=== PATIENT | male | born 1985 | race Caucasian/White ===

== ENCOUNTER 2019-11-02 12:11 | Emergency (ER) | payer BC ==
[~2019-11-02] VITALS: Ht 182.9 cm; Wt 149.7 kg
[2019-11-02] MEDS ORDERED: LABETALOL HCL 5 MG/ML 20ML VIAL IV STA (12:17)
[2019-11-02] MEDS ORDERED: KETOROLAC TROMETHAMINE 30 MG/ML VIAL IV STA (12:17)
[2019-11-02] MEDS ORDERED: DIAZEPAM INJ 5 MG/ML 2 ML IV ONE (12:30)
[2019-11-02] MEDS ORDERED: DEXAMETHASONE SOD PHOS 10 MG/1 ML VIAL IV ONE (12:30)
[2019-11-02 12:37] LABS: BASOPHILS # (AUTO) 0.1 (0.0-0.1); BASOPHILS % 1.2 % (0.0-1.0); EOSINOPHILS # (AUTO) 0.3 (0.0-0.4); EOSINOPHILS % 3.3 % (0.0-6.0); HEMATOCRIT 49.8 % (38.2-49.6); LYMPHOCYTES # (AUTO) 2.1 (1.0-3.2); LYMPHOCYTES % 24.7 % (18.0-39.1); MEAN CORPUSCULAR HEMOGLOBIN 28.3 pg (28-32); MEAN CORPUSCULAR HGB CONC 34.1 g/dL (31-35); MEAN CORPUSCULAR VOLUME 82.9 fL (81-99); MONOCYTES # (AUTO) 0.5 (0.2-0.8); MONOCYTES % 5.5 % (4.4-11.3); NEUTROPHILS # (AUTO) 5.6 (2.1-6.9); PLATELET COUNT 294 x10e3/uL (140-360); RED BLOOD COUNT 6.01 x10e6/uL (4.3-5.7); RED CELL DISTRIBUTION WIDTH 13.2 % (11.7-14.4)
[2019-11-02 12:55] LABS: ANION GAP 14.9 mmol/L (8-16); BLOOD UREA NITROGEN 9 mg/dL (7-26); BUN/CREATININE RATIO 8 (6-25); CALCIUM 9.7 mg/dL (8.4-10.2); CARBON DIOXIDE 25 mmol/L (22-29); CHLORIDE 102 mmol/L (98-107); CREATININE, SERUM 1.09 mg/dL (0.72-1.25); EST GLOMERULAR FILTRATION RATE > 60 ML/MIN (60-); GLUCOSE 139 mg/dL (74-118); POTASSIUM 3.9 mmol/L (3.5-5.1); SODIUM 138 mmol/L (136-145)
--- NOTE | 2019-11-02 13:05 | NUR ---
Patient to room 8
--- NOTE | 2019-11-02 13:15 | NUR ---
FAXED FOR RELEASE SENT TO [address]
--- NOTE | 2019-11-02 13:42 | Diagnostic Imaging Report ---
EXAMINATION: CERVICAL SPINE 4 OR 5 VIEWS INDICATION: Neck pain COMPARISON: None FINDINGS: AP, lateral, odontoid and oblique radiographs of the cervical spine were obtained. No acute fracture or dislocation. There is reversal of the normal cervical lordosis. No substantial degenerative change. The prevertebral soft tissues are normal in thickness. IMPRESSION: No acute osseous injury. Reversal of normal cervical lordosis. Signed by: Brendan Virgen MD on 11/02/2019 1:38 PM
[2019-11-02 15:45] VITALS: BP 142/107
--- OUTSIDE RECORDS SUMMARY | 2019-11-06 12:51 | XMS REPORT ---
Author Author [facility] Address Unknown Phone Unavailable Care Team Providers Care Senior Administrative Assistant Name Role Phone Miles LANDEROS Unavailable Unavailable Problems This patient has no known problems. Allergies, Adverse Reactions, Alerts This patient has no known allergies or adverse reactions. Medications This patient has no known medications. Results Test Description Test Time Test Comments Text Results Atomic Results Result Comments CERVICAL SPINE 4 OR 5 VIEWS 2019-11-02 13:37:00 [place] [address] Patient Name: CHRISTY RABAGO MR #: [id number] : 1985 Age/Sex: 34/M Req #: [id number] [facility] Physician: Ordered by: MAIK LANDEROS MD Report #: [id number] Location: ER Room/Bed: Procedure: [id number] DX/CERVICAL SPINE 4 OR 5 VIEWS Exam Date: Exam Time: REPORT STATUS: Signed EXAMINATION: CERVICAL SPINE 4 OR 5 VIEWS INDICATION: Neck pain COMPARISON: None FINDINGS: AP, lateral, odontoid and oblique radiographs of the cervical spine were obtained. No acute fracture or dislocation. There is reversal of the normal cervical lordosis. No substantial degenerative change. The prevertebral soft tissues are normal in thickness. IMPRESSION: No acute osseous injury. Reversal of normal cervical lordosis. Signed by: Leesa Virgen MD on 11/02/2019 1:38 PM Dictated By: LEESA VIRGEN MD 37 Transcribed By: SARAH on 11/02/191337 COPY TO: MAIK LANDEROS MD
== END 2019-11-02 15:59 | disposition home or self-care (01) ==
LOC: ER 12:11
DX: M54.12 Radiculopathy, cervical region (principal); I10 Essential (primary) hypertension; E66.9 Obesity, unspecified
CPT/HCPCS: 36415; 72050; 80048; 84484; 85025; 86140; 99283; J1100; J1885; J3360; J3490